=== PATIENT | male | born 1995 | race Caucasian/White ===

== ENCOUNTER 2025-04-26 07:22 | Emergency (ER) | payer SELFPAY ==
[2025-04-26] MEDS: Naproxen 500 MG Tab PO ONE (08:12)
== END 2025-04-26 09:04 | disposition home or self-care (01) ==
LOC: MW.ED 07:22
DX: M79.631 Pain in right forearm (principal); Z79.899 Other long term (current) drug therapy
CPT/HCPCS: 73090; 99283; A9270